=== PATIENT | male | born 1980 | race African-American/Black ===

== ENCOUNTER 2017-05-01 14:03 | Emergency (ER) | payer OTHER | END 2017-05-01 15:00 | disposition home or self-care (01) | LOC: ERS 14:03 | DX: H60.91 Unspecified otitis externa, right ear (principal); H61.21 Impacted cerumen, right ear; F41.9 Anxiety disorder, unspecified; F31.9 Bipolar disorder, unspecified; Z87.891 Personal history of nicotine dependence | CPT/HCPCS: 69209 ==

== ENCOUNTER 2018-01-29 13:36 | Emergency (ER) | payer OTHER ==
[2018-01-29] MEDS ORDERED: Ketorolac Tromethamine 30 MG/ML VIAL ONE (14:16)
--- NOTE | 2018-01-29 15:06 | RAD ---
LEFT KNEE 4 VIEW SERIES: INDICATION: Left knee pain. FINDINGS: There is no evidence of fracture or dislocation. No significant arthropathy. There is no joint caps ular distention. IMPRESSION: No acute osseous abnormality of the left knee. POS: [facility]
== END 2018-01-29 14:54 | disposition home or self-care (01) ==
LOC: ERS 13:36
DX: S83.92XA Sprain of unspecified site of left knee, initial encounter (principal); F31.9 Bipolar disorder, unspecified; F41.9 Anxiety disorder, unspecified; X58.XXXA Exposure to other specified factors, initial encounter
CPT/HCPCS: 96372; J1885

== ENCOUNTER 2018-02-17 14:58 | Emergency (ER) | payer OTHER ==
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
[2018-02-17] MEDS ORDERED: Acetaminophen/Codeine 30-300mg Tablet ONE (17:06)
[2018-02-17] MEDS ORDERED: Bacitracin Zinc 1 Packet ONE (18:14)
== END 2018-02-17 18:14 | disposition home or self-care (01) ==
LOC: ERS 14:58
DX: S61.411A Laceration without foreign body of right hand, initial encounter (principal); S81.812A Laceration without foreign body, left lower leg, initial encounter; Z87.891 Personal history of nicotine dependence; V89.2XXA Person injured in unspecified motor-vehicle accident, traffic, initial encounter
CPT/HCPCS: 71045; 72125; G0390

== ENCOUNTER 2018-03-10 18:46 | Emergency (ER) | payer OTHER | END 2018-03-10 19:17 | disposition home or self-care (01) | LOC: ERS 18:46 | DX: M25.562 Pain in left knee (principal); Z87.891 Personal history of nicotine dependence | CPT/HCPCS: 99283 ==

== ENCOUNTER 2018-04-29 19:57 | Emergency (ER) | payer OTHER | END 2018-04-29 20:17 | disposition home or self-care (01) | LOC: ERS 19:57 | DX: M54.5 Low back pain (principal); G89.29 Other chronic pain; F17.210 Nicotine dependence, cigarettes, uncomplicated | CPT/HCPCS: 99283 ==

== ENCOUNTER 2018-05-07 14:20 | Outpatient (CLI) | payer OTHER ==
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
== END 2018-05-07 14:21 | disposition home or self-care (01) ==
LOC: BICCT 14:20
PROVIDERS: ATTEND Family Medicine
DX: M12.562 Traumatic arthropathy, left knee (principal); S13.4XXA Sprain of ligaments of cervical spine, initial encounter; M51.16 Intervertebral disc disorders with radiculopathy, lumbar region; M47.22 Other spondylosis with radiculopathy, cervical region; M51.87 Other intervertebral disc disorders, lumbosacral region
CPT/HCPCS: 72125; 72131

== ENCOUNTER 2022-05-10 17:41 | Emergency (ER) | payer OTHER | END 2022-05-10 19:04 | disposition home or self-care (01) | LOC: ERS 17:41 | DX: S13.4XXA Sprain of ligaments of cervical spine, initial encounter (principal); S80.02XA Contusion of left knee, initial encounter; M54.50 Low back pain, unspecified; F17.210 Nicotine dependence, cigarettes, uncomplicated; V43.52XA Car driver injured in collision with other type car in traffic accident, initial encounter | CPT/HCPCS: 72100 ==

== ENCOUNTER 2022-08-09 12:35 | Emergency (ER) | payer OTHER ==
[2022-08-09] MEDS ORDERED: Acetaminophen 500 MG TAB ONE (13:01)
== END 2022-08-09 13:02 | disposition home or self-care (01) ==
LOC: ERS 12:35
DX: S31.811D Laceration without foreign body of right buttock, subsequent encounter (principal); F17.210 Nicotine dependence, cigarettes, uncomplicated; W26.9XXD Contact with unspecified sharp object(s), subsequent encounter

== ENCOUNTER 2023-02-12 10:56 | Emergency (ER) | payer OTHER | END 2023-02-12 13:10 | disposition home or self-care (01) | LOC: ERS 10:56 | DX: M25.562 Pain in left knee (principal); F17.210 Nicotine dependence, cigarettes, uncomplicated ==

== ENCOUNTER 2023-05-06 09:36 | Emergency (ER) | payer OTHER ==
[2023-05-06 11:35] LABS: SARS-CoV-2 NAA Rapid Test Not Detected (NotDetected)
== END 2023-05-06 12:04 | disposition home or self-care (01) ==
LOC: ERS 09:36
DX: J06.9 Acute upper respiratory infection, unspecified (principal); Z20.822 Contact with and (suspected) exposure to COVID-19; Z87.891 Personal history of nicotine dependence
CPT/HCPCS: 99283

== ENCOUNTER 2023-07-29 12:06 | Emergency (ER) | payer OTHER | END 2023-07-29 13:25 | disposition home or self-care (01) | LOC: ERS 12:06 | DX: H10.9 Unspecified conjunctivitis (principal); F17.210 Nicotine dependence, cigarettes, uncomplicated | CPT/HCPCS: 99283 ==

== ENCOUNTER 2024-01-03 08:22 | Emergency (ER) | payer OTHER | END 2024-01-03 09:57 | disposition home or self-care (01) | LOC: ERS 08:22 | DX: G89.29 Other chronic pain (principal); M25.562 Pain in left knee; F17.210 Nicotine dependence, cigarettes, uncomplicated | CPT/HCPCS: 99283 ==